=== PATIENT | male | born 2000 | race Two or more races ===

== ENCOUNTER 2024-05-24 00:13 | Emergency (ER) | payer OTHER, SELFPAY ==
[2024-05-24 00:14] VITALS: BP 138/88; PULSE 85; RESP 16; TEMP 36.7; O2SAT 97; BMI 26.6
--- NOTE | 2024-05-24 00:46 | [facility].EDGENADL ---
Discharge Plan Disposition Patient Disposition: Home, Self-Care Condition: Good Prescriptions Prescriptions: No Action No Known Home Medications Referrals Follow up/Referrals: Yobani Humphrey MD [Physician] - See instructions (epistaxis difficult to control in ER, required TXA soaked gauze, may need cautery) Mary Busch APRN [Nurse Practitioner] - See instructions (epistaxis difficult to control in ER, required TXA soaked gauze, may need cautery) Provider,MD Donald [Primary Care Provider] - See instructions Activity Restrictions/Add. Instructions Additional Instructions/Restrictions: You were evaluated in the ER and are appropriate for discharge at this time. If your nosebleeds again, blow your nose then use the Afrin spray provided to you. This should not be used more than 2 days in a row. Tonight, do not blow your nose, touch your nose, or pick your nose. This may cause it to bleed again. Call the ENT office for an appointment, you likely need cautery of the nose to stop it from bleeding in the future. [phone] Return to the ER with with new, worsening, or otherwise concerning symptoms. Clinical Impressions Clinical Impression: Epistaxis Instructions Patient Instructions: DI for Nosebleed Print Language Print Language: Tajik Discharge ED Provider: Alfred Burgess General Adult HPI General Chief complaint: Epistaxis Stated complaint: nosebleed Time Seen by Provider: 05/24/24 00:32 Mode of Arrival: Ambulatory Source of Information: Patient Limitations: No Limitations Description of Symptoms (Recalled from ER Triage Doc. by RN): He is Tajik speaking. Interpretor used. He reports that his nose started bleeding around 2029 and he is concerned because it hasn't stopped. He reports that he does have a hx of HTN but has not had any other symptoms. BP 138/88. He denies any injury. Bleeding from left nostril. History of Present Illness HPI narrative: 23-year-old male presents to the ER with concerns of over 3 hours of nosebleeding from the left side of the nose. Patient reports he was told at one time he had hypertension but does not take any daily medications. Blood pressure on arrival 138/88. He does not report any injuries, he states he has only been bleeding from the left side of the nose, it has been a slow ooze but has not stopped so he was concerned and came to the ER. Patient does not report any history of easy bleeding or bruising, no other associated symptoms. Related Data Home Medications ?Medication ?Instructions ?Recorded ?Confirmed No Known Home Medications 05/24/24 05/24/24 Allergies Allergy/AdvReac Type Severity Reaction Status Date / Time No Known Allergies Allergy Verified 05/24/24 00:45 PFSH [facility] Disclaimer: The information contained in this section may have been updated after the patient was seen, as this information can be updated by other users. Social History Smoking Status: Current every day smoker alcohol intake: never current occupational status: other Travel in the last 8 weeks: None ROS Obtained: Yes Systems reviewed as appropriate & no additional complaints except as documented Positive ROS per HPI Physical Exam General General appearance: alert and in no apparent distress Head Head exam: atraumatic and normocephalic Eye Eye exam: Present PERRL and EOMI ENT ENT exam: Present mucous membranes moist and other (Slow oozing from left naris, no obvious visualized vessel as the source, however there is no pulsatile bleeding, no brisk bleeding, no bleeding down the back of the throat. There is a small amount of blood in the right nare as well however this appears to be spilling over from the left. ) Expanded ENT Exam Nasal speculum exam: Left: epistaxis Neck Neck exam: Present normal inspection and full ROM Chest Chest inspection: Present symmetric chest wall rise Respiratory Respiratory exam: Absent respiratory distress or stridor Cardiovascular Cardiovascular exam: Present regular rate and normal rhythm Extremities Exam Extremities exam: Present full ROM Neurological Exam Neurological exam: Present alert and oriented X3; Absent motor sensory deficit Psychiatric Psychiatric exam: Present normal affect and normal mood Skin Skin exam: Present warm and dry Medical Decision Making Medical Records Screening: Per USPSTF and CDC recommendations, given the prevalence of disease in our region, it is our hospital?s policy to screen for HIV and viral Hepatitis for all patients aged 18 and over and those with ongoing risk factors. MR Comment: Patient previously seen in [facility] for elbow sprain in 2018 [place] Inquiry Pt receiving controlled substance: No Vital Signs: 05/24/24 00:14 Temperature 98.0 F Temperature Source Oral Pulse Rate [Right Brachial] 85 Respiratory Rate 16 Blood Pressure [Right Arm] 138/88 Blood Pressure Mean [Right Arm] 104 Blood Pressure Source [Right Arm] Automatic Cuff Blood Pressure Position [Right Arm] Sitting 02 Sat by Pulse Oximetry 97 Oxygen Delivery Method Room Air Lab Data Lab Results 05/24/24 01:45: WBC 6.9, RBC 4.97, Hgb 15.6, Hct 46.7, MCV 93.9, MCH 31.3 H, MCHC 33.3, RDW 13.6, Plt Count 223, MPV 7.7, Neut % (Auto) 47.1, Lymph % (Auto) 40.7, [place] % (Auto) 7.2, Eos % (Auto) 3.3, Baso % (Auto) 1.7, Neut # (Auto) 3.3, Lymph # (Auto) 2.8, [place] # (Auto) 0.5, Eos # (Auto) 0.2, Baso # (Auto) 0.1, PT 10.5, INR 0.93, APTT 27.4, HIV 1&2 Antibody Rapid Nonreactive 05/24/24 01:45 Orders (Tests/Meds): ED MEDICATIONS Discontinued Medications Generic Name Dose Route Start Last Admin Trade Name Cristobalq PRN Reason Stop Dose Admin Tranexamic Acid 1,000 mg/ 260 mls @ 32.5 mls/hr 05/24/24 01:37 05/24/24 01:38 Sodium Chloride TP 05/24/24 01:38 32.5 mls/hr ONCE ONE Administration Oxymetazoline HCl 1 ml 05/24/24 00:45 05/24/24 00:48 Oxymetazoline Nasal [place] 0.05% 15ml NS 05/24/24 00:46 1 ml ONCE ONE Administration ORDERS Category Date Time Status CBC w/Auto Diff [Complete Blood Count Auto Diff] Stat Lab 05/24/24 01:45 Completed HIV (1&2) Antibody Rapid Stat Lab 05/24/24 01:45 Completed Hep C Ab with Reflex to RNA Stat Lab 05/24/24 01:45 Received PT INR [Prothrombin Time INR] Stat Lab 05/24/24 01:45 Completed PTT [Activated Partial Thrombo Time] Stat Lab 05/24/24 01:45 Completed Medical Decision Narrative: In summary, this 23-year-old male presents to the emergency department today with nosebleed for multiple hours. On initial evaluation patient is hemodynamically stable, afebrile, blood slowly oozing from the left nare, some blood from the right nare however the active bleeding appears to be on the left side, nonpulsatile, minimal blood running down the back of the throat. Differential diagnosis includes but is not limited to anterior nosebleed, I considered posterior bleed however patient does not have pulsatile bleeding, large volume loss, or significant blood running down the throat. Initially I did not have high concern for coagulopathy so labs were not initially ordered. I had patient blow his nose and oxymetazoline spray was applied and nose was clamped for 30 minutes. After removal, patient continued having bleeding. At this point I became more concerned for possible coagulopathy so basic labs were ordered and I had patient blow his nose again, TXA soaked gauze was placed in the nose with clamp for 45 minutes. Labs reviewed, no leukocytosis or anemia, platelets normal, PT/INR and APTT normal, no findings of coagulopathy appreciated on these labs. After 45 minutes with TXA soaked gauze in both sides of the nose, these were removed, significant clot came out, however patient did not have any continued bleeding. I monitored him for an additional 20 minutes after this and he did not have any recurrence of bleeding. He continued to be stable and is appropriate for discharge at this time. He was provided the Afrin spray for use if needed for bleeding in the future but given careful instructions on how to use this. He was also referred to ENT for outpatient follow-up as he likely needs cautery. Additionally he was given strict return precautions for the ER. He indicated understanding and the patient was discharged in stable condition. [employer] was used for this encounter Critical Care Critical Care Time Critical Care Time: No
[2024-05-24] MEDS: OXYMETAZOLINE NASAL SPRAY 0.05% 15ML NS (00:48)
[2024-05-24] MEDS: TRANEXAMIC ACID 1,000 MG in 0.9 % SODIUM CHLORIDE 250 ML 32.5 MG TP (01:38)
[2024-05-24 01:53] LABS: Basophils # 0.1 K/mm3 (0-0.2); Basophils % 1.7 % (0.1-2.0); Eosinophils # 0.2 K/mm3 (0.0-0.4); Eosinophils % 3.3 % (0.1-12.0); Hematocrit 46.7 % (42.0-52.0); Hemoglobin 15.6 g/dL (14.1-18.0); Lymphocytes # 2.8 K/mm3 (0.7-4.5); Lymphocytes % 40.7 % (10-50); Mean Corpuscular HGB Conc 33.3 g/dL (31.8-35.4); Mean Corpuscular Hemoglobin 31.3 pg (27.0-31.2); Mean Corpuscular Volume 93.9 fl (80-94); Mean Platelet Volume 7.7 fl (7.4-10.4); Monocytes # 0.5 K/mm3 (0.1-1.0); Monocytes % 7.2 % (1.7-9.3); Neutrophils # 3.3 K/mm3 (1.8-7.8); Neutrophils % 47.1 % (37.0-80.0); Platelet Count 223 K/mm3 (142-424); Red Blood Count 4.97 M/mm3 (4.60-6.20); Red Cell Distribution Width 13.6 % (11.5-17.5); White Blood Count 6.9 K/mm3 (4.8-10.8)
[2024-05-24 02:03] LABS: Activated Partial Thrombo Time 27.4 seconds (22.8-30.6); INR 0.93 (0.9-1.1); Prothrombin Time 10.5 seconds (10.1-12.5)
[2024-05-24 03:20] LABS: HIV (1&2) Antibody Rapid NONREACTIVE (NONREACTIVE)
[2024-05-24 03:49] VITALS: BP 125/80; PULSE 77; RESP 17; TEMP 36.8; O2SAT 98
[2024-05-26 05:15] LABS: HCV Ab Non Reactive (Non Reactive)
== END 2024-05-24 03:49 | disposition home or self-care (01) ==
PROVIDERS: Emergency Provider Emergency Medicine
DX: R04.0 Epistaxis (principal)
CPT/HCPCS: 85025; 85610; 85730; 86803; 87389; 99283